=== PATIENT | female | born 1940 | race Caucasian/White ===

== ENCOUNTER 2018-09-25 17:03 | Inpatient (IN) | payer MEDICARE, BC, OTHER ==
--- NOTE | 2018-09-25 18:03 | CON ---
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 She lives in [place] and had a stress test done there about 1 month ago and it was abnormal and they recommended cardiac catheterization. On September 08, she came to see Dr. Hernandez, because he had seen her previously for cardiac evaluations, which were unremarkable. He performed a PET scan on her, which demonstrated elevated TID suggestive of global ischemia with moderate reversible defects in the LAD distribution. She returned today for cardiac catheterization demonstrating severe left main disease, minimal right coronary disease. Left ventricular systolic function is normal, per Dr. Hernandez. Her risk factors include hypertension, dyslipidemia with statin intolerance, and diabetes mellitus. Cholesterol level has been about 183 and an LDL of about 107. Her most recent A1c was 8.3. CURRENT MEDICATIONS: Include, 1. Glucophage 850 b.i.d. 2. Glucotrol 5 XL daily. 3. Tresiba. 4. Afrezza. 5. Prinivil. 6. Aspirin 81 a day. Additional medications include, 1. Coreg 12.5 b.i.d. 2. Lisinopril 40 a day. 3. Synthroid 100 mcg a day. 4. As mentioned, she is on Tresiba 22 units every evening. 5. Afrezza 8 units/12 units three times daily. PAST SURGICAL HISTORY: Includes tonsillectomy and tubal ligation. SOCIAL HISTORY: As mentioned, she is a retired nurse. She is , lives with her in [place]. She recently had suffered the of one of her sons about a week ago and the other son suffered an accidental leg amputation in March of this year. The patient does drink alcohol. ALLERGIES: SHE REPORTS MYALGIA WITH PRAVASTATIN AND SIMVASTATIN, PARTICULARLY IN HER HANDS AND SHE REPORTS EDEMA WITH LOSARTAN AND REACTION OF SOME SORT TO ERYTHROMYCIN BASE. PHYSICAL EXAMINATION: GENERAL: Alert, cooperative lady, in no distress with a recorded height of 5 feet 3 inches. Weight not recorded. NECK: No carotid bruits. LUNGS: Clear to auscultation. CARDIAC: Regular rate and rhythm. No murmurs. ABDOMEN: Soft and nontender. EXTREMITIES: She has no varicosities, but no palpable veins in the lower leg. She has palpable dorsalis pedis pulse in both feet. She has a good Anthony's test in her left arm. At this time, she could have grafted the LAD and distal circumflex. She has 2 first diagonals which appeared to be too small to graft. PLAN: Plan is for coronary artery bypass grafting on Friday. Job ID: [id number]
[2018-09-25] MEDS ORDERED: Acetaminophen 325 MG TAB PO PRN (20:55)
[2018-09-25] MEDS ORDERED: Dextrose 50% Abboject 50 ML SYRINGE SLOW IVP PRN (20:58)
[2018-09-25] MEDS ORDERED: HumaLOG 300 UNITS/3 ML VIAL SC PRN (20:58)
[2018-09-25] MEDS ORDERED: Dextrose 5% in Water 1,000 ML IV PRN (20:58)
[2018-09-25] MEDS ORDERED: Nitroglycerin 0.4 MG TAB (25 Tab Bottle) SL PRN (20:59)
[2018-09-25] MEDS ORDERED: Insulin Glargine 22 UNITS in Pre-Filled Syringe 1 EACH SC SCH (21:00)
--- NOTE | 2018-09-25 21:56 | HP ---
The patient is a direct admit from the cardiac catheterization lab at outside hospital. CHIEF COMPLAINT: Chest pain with exertion. HISTORY OF PRESENT ILLNESS: This is a 78-year-old female with history of hypertension; dyslipidemia; and diabetes mellitus, on insulin, who presents to the hospital from the catheterization lab at the direction of Dr. Hernandez and Dr. Mueller for severe coronary artery disease needing CABG. The patient reports that starting in December of 2017, when she would walk about a quarter mile at a fast pace that she would have burning across her chest, occasional radiation to her right arm, and feeling short of breath. She had a few episodes that were not consistent, however, this has persisted since then. She does report that she can exert herself such as lifting things or working out in her garden without symptoms. She denies any chest pain currently, denies any nausea or vomiting, denies any symptoms right now. The patient lives in [place], had an abnormal stress test there and required further workup. As she is used to live in this area, she followed up with Dr. Hernandez and had an echocardiogram, a PET scan, which demonstrated ischemia, today underwent catheterization, which shows severe left main artery disease. Based on that, Dr. Mueller was contacted from the catheterization center, and the patient is being directly admitted. ALLERGIES: 1. ERYTHROMYCIN. 2. LOSARTAN. 3. STATINS, WHICH CAUSE MYALGIAS. FAMILY HISTORY: Significant for coronary artery disease, elevated cholesterol, and hypertension. MEDICATIONS: Reconciled with the bottles; 1. Afrezza 8 to 12 units inhaled 3 times a day with meals. 2. Lisinopril 40 mg daily. 3. Aspirin 81 mg daily. 4. Prilosec 40 mg daily. 5. Carvedilol 12.5 mg b.i.d. 6. Synthroid 100 mcg once a day. 7. Chlorthalidone 25 mg once a day. 8. Tresiba 22 units subcutaneous at night. 9. Calcium and vitamin D b.i.d. 10. Biotin daily. 11. Magnesium daily. 12. Coenzyme Q10 of 100 mg daily. 13. Homocysteine daily. 14. Vitamin C daily. 15. Policosanol 23 mg daily, it is a vitamin supplement. 16. Red yeast rice 3 times a week. 17. Vitamin D once a week. PAST MEDICAL HISTORY: 1. Diabetes Mellitus, insulin-requiring. 2. Dyslipidemia, intolerant to statins. 3. Hypertension. 4. Hypothyroidism with last TSH 2.87 on September 17. 5. Osteopenia. PAST SURGICAL HISTORY: 1. Tonsillectomy. 2. Tubal ligation. SOCIAL HISTORY: The patient is . Her is her surrogate decision maker and she is a full code. A remote history of tobacco. No alcohol use or drug use. Of note, the patient's youngest son 2 days ago. REVIEW OF SYSTEMS: Positive for some mild swelling in her legs, negative for any current chest pain, shortness of breath, dizziness, abdominal pain, nausea, or vomiting. All remaining review of systems are reviewed and negative. PHYSICAL EXAMINATION: VITAL SIGNS: Blood pressure 123/104, pulse 50, temperature 97.8, respirations 16, and sats 98% on room air. GENERAL: Awake, alert, and responsive, in no apparent distress. HEENT: Oral mucosa pink and moist. Pupils are equal and round. NECK: Supple and nontender. LYMPHATICS: No palpable cervical or supraclavicular lymphadenopathy. VASCULAR: No audible carotid bruits. LUNGS: Clear to auscultation bilateral. HEART: Normal S1 and S2. Regular rate and rhythm. No significant murmurs. ABDOMEN: Soft with present bowel sounds. Nontender and nondistended. EXTREMITIES: No significant edema, clubbing, or cyanosis. SKIN: No visible rashes. NEURO: No focal deficits. PSYCH: Euthymic, appears sad when discussing the current situation, linear, logical, goal directed thought process. LABORATORY DATA: Reviewed, that were performed at [facility]. CBC; 8.1, 11.6, 35, and 218. Metabolic panel; 138, 4.7, 104, 27, 31.0, and 156. LFTs, total protein 7, albumin 3.7, T bilirubin 0.7, D bilirubin 0.1, AST 24, ALT 25, and alkaline phosphatase 63. Lipids, triglycerides 34, total cholesterol 218, HDL 81, and LDL 130. TSH from September 17.87. Last hemoglobin A1c was 8.3. EKG is personally reviewed. EKG shows a sinus rhythm with a rate of 52, normal axis, normal intervals. No ST changes. However, abnormal R-wave progression. Catheterization today shows 95% occlusion of the left main or the LAD. IMPRESSION: 1. Stable angina with now diagnosed severe coronary artery disease, warranting coronary artery bypass grafting. 2. Diabetes mellitus, insulin dependent. 3. Hypertension, unknown control. 4. Dyslipidemia, intolerant to statins. 5. Hypothyroidism, controlled. 6. Mild anemia based on labs today. 7. Questionable chronic kidney disease based on a GFR calculated today of 58. PLAN: 1. Admission to the [facility] for close monitoring as a telemetry bed is not available. 2. Consultation with Dr. Mueller, who has already seen the patient and Dr. Owens of Cardiology. 3. We will be continuing her beta emerson, aspirin, wiliam-inhibitor for blood pressure control. 4. We will continue long-acting insulin and use short-acting injectable insulin with meals with the goal of good control preoperatively. 5. Monitoring her renal function. Continuing her WILIAM inhibitor. 6. Continue levothyroxine as last TSH at goal. 7. Monitoring on telemetry. 8. Nitroglycerin p.r.n. for any chest pain. 9. Continuing her home PPI. 10. DVT prophylaxis. The patient is ambulatory. We will use pneumatic compression devices while in bed. 11. GI prophylaxis not indicated. 12. Code status is full and surrogate decision maker is the patient's . 13. The patient declines any spiritual support given the loss of her son, will let us know if there is other ways that we can help and support her during this time. 14. Reviewed the plan of care with the patient, who demonstrates understanding. No questions or further needs at the end of evaluation. 15. The patient is at high risk given age comorbidities and current presentation. Job ID: [id number] [facility]
[2018-09-25] MEDS ORDERED: Insulin Glargine 10 UNITS in Pre-Filled Syringe 1 EACH SC SCH (22:15)
[2018-09-25] MEDS: Carvedilol 6.25 MG TAB PO SCH (22:29)
[2018-09-25] MEDS ORDERED: TRESIBA SC SCH (22:30)
[2018-09-26 04:51] LABS: Anion Gap 9 mmol/L (10-20); BUN (Urea Nitrogen) 25 mg/dL (9.8-20.1); Calc. Creatinine Clearance 50 mL/min (70-130); Calcium 9.7 mg/dL (7.8-10.44); Carbon Dioxide 26 mmol/L (23-31); Chloride 103 mmol/L (98-107); Estimated GFR-MDRD 53; Glucose 230 mg/dL (83-110); Potassium 4.3 mmol/L (3.5-5.1); Sodium 134 mmol/L (136-145)
[2018-09-26] MEDS: Levothyroxine Sodium 100 MCG TAB PO SCH (05:30)
[2018-09-26] MEDS: Carvedilol 6.25 MG TAB PO SCH ×3 (09:37→21:07)
[2018-09-26] MEDS: Chlorthalidone 25 MG TAB PO SCH (09:37)
[2018-09-26] MEDS: Aspirin 81 mg Enteric Coated Tablet PO SCH (09:37)
[2018-09-26] MEDS: Lisinopril 20 MG TAB PO SCH (09:38)
--- NOTE | 2018-09-26 10:04 | PDOC.PN ---
- Subjective Encounter Start Date: 09/26/18 (f/u severe CAD) Encounter Start Time: 10:02 Subjective: Pt without complaints this morning - denies any chest pain. - Objective Resuscitation Status - Order Detail: 09/25/18 20:55 Resuscitation Status Routine Resuscitation Status: FULL: Full Resuscitation Vital Signs & Weight: Vital Signs (12 hours) Temp BP 09/26/18 09:38 115/58 L 09/26/18 09:37 115/58 L 09/26/18 07:14 96.5 F L 09/26/18 03:38 97.3 F L 09/26/18 00:05 98.0 F 09/25/18 22:29 165/93 H Weight Weight 149 lb 11.102 oz Most Recent Monitor Data Heart Rate from ECG 58 NIBP 115/58 NIBP BP-Mean 77 Respiration from ECG 12 SpO2 95 I&O: 09/25/18 09/26/18 09/27/18 06:59 06:59 06:59 Intake Total 240 Output Total 325 Balance -85 Result Diagrams: 09/26/18 04:14 Additional Labs: Accuchecks 09/25/18 21:07 POC Glucose 77 EKG Reviewed by me: Yes (tele - sinus 50's) Phys Exam - Physical Examination Constitutional: NAD Respiratory: no wheezing, no rales, no rhonchi, clear to auscultation bilateral Cardiovascular: RRR 2/6 YELITZA most audible at LUSB Gastrointestinal: soft, non-tender, no distention, positive bowel sounds Musculoskeletal: no edema Neurological: non-focal, moves all 4 limbs Psychiatric: normal affect Dx/Plan (1) Coronary artery disease Code(s): I25.10 - ATHSCL HEART DISEASE OF [place] CORONARY ARTERY W/O ANG PCTRS Status: Acute (2) Diabetes mellitus Code(s): E11.9 - TYPE 2 DIABETES MELLITUS WITHOUT COMPLICATIONS Status: Acute Qualifiers: Diabetes mellitus type: type 2 Diabetes mellitus intermediate designer insulin use: with intermediate designer use (3) CKD (chronic kidney disease) Code(s): N18.9 - CHRONIC KIDNEY DISEASE, UNSPECIFIED Status: Acute Qualifiers: Chronic kidney disease stage: stage 2 (mild) Qualified Code(s): N18.2 - Chronic kidney disease, stage 2 (mild) (4) Dyslipidemia Code(s): E78.5 - HYPERLIPIDEMIA, UNSPECIFIED Status: Chronic (5) Hypothyroid Code(s): E03.9 - HYPOTHYROIDISM, UNSPECIFIED Status: Chronic (6) Hypertension Code(s): I10 - ESSENTIAL (PRIMARY) HYPERTENSION Status: Chronic Qualifiers: Hypertension type: essential hypertension Qualified Code(s): I10 - Essential (primary) hypertension - Plan * pt with severe left main disease awaiting CABG on Friday * Appreciate [facility] consult * Cardiology consult placed * bp's well controlled * AM sugar elevated - secondary to low blood sugar last night and reduced amount of long-acting insulin * Increase Treesiba to 22 units at HS - home dose * ISS with meals * Pre-op planning - per [facility] * continue usual home meds * creatinine normal, estimated GFR 58 - will follow post-operatively * dvt prophy - ambulatory * gi prophy - not indicated * code status full * * reviewed plan of care with patient, no questions or further needs at end of eval
[2018-09-26] MEDS: HumaLOG 300 UNITS/3 ML VIAL SC PRN ×2 (10:57→17:21)
--- NOTE | 2018-09-26 13:13 | CON ---
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 Dr. Mueller has scheduled to undergo CABG on Friday morning. This morning, she denied any chest pain, chills, or sweats. She is a former smoker, quit 50 years ago, but no prior history of TB, pneumonia, or bronchial asthma. PAST MEDICAL HISTORY: Pertinent for otherwise diabetes, hypertension, hyperlipidemia, and hypothyroidism. PREVIOUS SURGICAL HISTORY: Tonsils and tubal ligation. MEDICATIONS: Cardiac medications from home included; 1. . 2. Lisinopril 40. 3. Synthroid 100. 4. Insulin. 5. Coreg 12.5. 6. Aspirin. ALLERGIES: ERYTHROMYCIN AND LOSARTAN. SOCIAL HISTORY: As noted, no alcohol or tobacco abuse at this stage. REVIEW OF SYSTEMS: Ten-point negative. PHYSICAL EXAMINATION: VITAL SIGNS: Blood pressure 115/58, pulse 50, and respiratory rate 18. CHEST: Decreased breath sounds. No wheezing. CARDIAC: Normal S1 and S2. No gallops. ABDOMEN: No masses. IMPRESSION: Coronary artery disease, hypertension, diabetes, and obesity. PLAN: Pulmonary will follow while in the ICU. Continue cardiac care and supportive care. Job ID: [id number]
[2018-09-26] MEDS ORDERED: Communication Order-Pharmacy FS ONE (13:30)
[2018-09-26] MEDS ORDERED: [UNRECOGNIZED DRUG - OTHER] FS SCH ×2 (15:00)
--- NOTE | 2018-09-26 17:18 | CON ---
DATE OF CONSULTATION: 09/26/2018 REASON FOR CONSULTATION: Coronary artery disease. HISTORY OF PRESENT ILLNESS: Ms. Pompa is a very pleasant 78-year-old white female, who comes to the hospital for a planned bypass surgery. She is currently living in [place], but was following with Dr. Hernandez for several years in the past. She started having symptoms persistent with angina sometime in the fall of last year. She saw a clay mine cutting machine operator over there, did a treadmill stress and she was told that her EKG was very abnormal and she might need bypass surgery and needed heart catheterization. She eventually decided that she want to come back to [place] and Dr. Hernandez to do this, and eventually had a heart catheterization yesterday and was found to have severe multivessel disease. She is scheduled to have CABG on Friday with Dr. Mueller. She is admitted here, planning for CABG on Friday. Currently, she is chest-pain free. She only gets pain and shortness of breath when she walks too much. PAST MEDICAL HISTORY: 1. Coronary artery disease as above. 2. Hypertension. 3. Hyperlipidemia. 4. Type 2 diabetes, insulin dependent. 5. GERD. 6. Hypothyroidism. 7. Osteopenia. PAST SURGICAL HISTORY: 1. Tonsillectomy. 2. Tubal ligation. 3. Left heart catheterization yesterday. OUTPATIENT MEDICATIONS: Include: 1. Afrezza. 2. Lisinopril 40 mg a day. 3. Aspirin 81 a day. 4. Prilosec. 5. Carvedilol 12.5 mg b.i.d. 6. Synthroid 100 mcg a day. 7. Chlorthalidone 25 mg a day. 8. Tresiba. 9. Calcium and vitamin D. 10. Biotin. 11. Magnesium. 12. Coenzyme Q10. 13. Homocysteine. 14. Vitamin C. 15. Policosanol vitamin supplement. 16. Red yeast rice. 17. Vitamin D. ALLERGIES: 1. ERYTHROMYCIN. 2. LOSARTAN. 3. STATINS CAUSE MYALGIAS. FAMILY HISTORY: Coronary artery disease in mother, hyperlipidemia, and hypertension. SOCIAL HISTORY: No alcohol, tobacco, or drugs. Remote history of tobacco use. REVIEW OF SYSTEMS: A 12-point review of systems was done and was all negative unless stated in the history of present illness. PHYSICAL EXAMINATION: VITAL SIGNS: Temperature 98.5, pulse is 62, respiratory rate 17, sat 97% on room air, and blood pressure 136/64. GENERAL: Awake, alert, and oriented x3. No distress. HEENT: Normocephalic and atraumatic. NECK: Supple. LUNGS: Clear. CARDIOVASCULAR: S1 and S2. No S3 or S4. No murmurs. ABDOMEN: Soft. Positive bowel sounds. EXTREMITIES: No edema. SKIN: Warm and dry. LABORATORY DATA: Laboratory work was reviewed. ASSESSMENT: 1. Multivessel coronary artery disease. 2. Hypertension. 3. Hyperlipidemia. 4. Intolerance to statins. 5. Type 2 diabetes. PLAN: 1. CABG by Dr. Mueller, scheduled for Friday. 2. We will need aspirin, beta emerson, and WILIAM inhibitor before discharge. We will try to restart at lower doses once blood pressure allows. 3. She will be a candidate for Repatha or Praluent in the future as she is intolerant to statins. LDL goal less than 70. Thank you for letting us to participate in care of your patient. Job ID: [id number]
[2018-09-26] MEDS ORDERED: TRESIBA SC SCH (21:00)
[2018-09-26] MEDS ORDERED: Insulin Glargine 22 UNITS in Pre-Filled Syringe 1 EACH SC SCH (21:00)
[2018-09-27] MEDS: Levothyroxine Sodium 100 MCG TAB PO SCH (06:18)
[2018-09-27] MEDS: Carvedilol 6.25 MG TAB PO SCH (08:58)
[2018-09-27] MEDS: Lisinopril 20 MG TAB PO SCH (08:58)
[2018-09-27] MEDS: Aspirin 81 mg Enteric Coated Tablet PO SCH (08:59)
[2018-09-27] MEDS: Chlorthalidone 25 MG TAB PO SCH (08:59)
--- NOTE | 2018-09-27 12:03 | PRG ---
DATE OF SERVICE: 09/27/2018 SUBJECTIVE: This morning, no chest pain. No shortness of breath. OBJECTIVE: VITAL SIGNS: Blood pressure temperature 97, pulse 57, 90% saturation on room air. CHEST: Decreased breath sounds. No wheezing. CARDIAC: Normal S1 and S2. No gallops. ABDOMEN: No masses. IMPRESSION: Coronary artery disease, diabetes, renal failure. PLAN: She is scheduled for surgery, bypass tomorrow. We will follow while in the ICU. Job ID: [id number]
--- NOTE | 2018-09-27 15:18 | PDOC.CTH ---
Cardiology Progress Note - Subjective No new issues. No chest pain. - Objective Vital Signs Temp Pulse Resp BP BP BP Pulse Ox 09/27/18 11:55 97.9 F 64 16 125/60 96 09/27/18 08:58 126/59 L 09/27/18 08:00 97 F L 57 L 18 126/59 L 93 L 09/27/18 03:40 98.0 F 65 16 129/60 95 Weight 151 lb 09/26/18 09/27/18 09/28/18 06:59 06:59 06:59 Intake Total 240 1120 440 Output Total 325 1000 Balance -85 120 440 - Physical Examination General/Neuro: alert & oriented x3, NAD Neck: no JVD present Lungs: CTA, unlabored respirations Heart: RRR Abdomen: NT/ND Extremities: other: (no edema) - Telemetry Telemetry Rhythm: NSR - Labs Result Diagrams: 09/26/18 04:14 - Assessment/Plan 1. Multivessel CAD. PLAN: - CABG tomorrow with Dr. Mueller.
--- NOTE | 2018-09-27 15:53 | PDOC.PN ---
- Subjective Encounter Start Date: 09/27/18 (f/u DM) Encounter Start Time: 15:47 Subjective: Pt without complaints today. Denies any chest pain or difficulty breathing - Objective Resuscitation Status - Order Detail: 09/25/18 20:55 Resuscitation Status Routine Resuscitation Status: FULL: Full Resuscitation Vital Signs & Weight: Vital Signs (12 hours) Temp Pulse Resp BP BP BP Pulse Ox 09/27/18 11:55 97.9 F 64 16 125/60 96 09/27/18 08:58 126/59 L 09/27/18 08:00 97 F L 57 L 18 126/59 L 93 L Weight Weight 151 lb Most Recent Monitor Data Heart Rate from ECG 60 NIBP 118/52 NIBP BP-Mean 74 Respiration from ECG 15 SpO2 96 I&O: 09/26/18 09/27/18 09/28/18 06:59 06:59 06:59 Intake Total 240 1120 440 Output Total 325 1000 Balance -85 120 440 Result Diagrams: 09/26/18 04:14 Additional Labs: Accuchecks 09/27/18 09/27/18 09/26/18 10:42 05:25 20:39 POC Glucose 159 H 146 H 176 H 09/26/18 09/26/18 16:26 06:00 POC Glucose 154 H 188 H EKG Reviewed by me: Yes (tele - sinus 60's) Phys Exam - Physical Examination Constitutional: NAD Respiratory: no wheezing, no rales, no rhonchi, clear to auscultation bilateral Cardiovascular: RRR, no significant murmur Gastrointestinal: soft, non-tender, no distention, positive bowel sounds Musculoskeletal: no edema Neurological: non-focal, moves all 4 limbs Psychiatric: normal affect Dx/Plan (1) Coronary artery disease Code(s): I25.10 - ATHSCL HEART DISEASE OF [place] CORONARY ARTERY W/O ANG PCTRS Status: Acute (2) Diabetes mellitus Code(s): E11.9 - TYPE 2 DIABETES MELLITUS WITHOUT COMPLICATIONS Status: Acute Qualifiers: Diabetes mellitus type: type 2 Diabetes mellitus halfway insulin use: with halfway use (3) CKD (chronic kidney disease) Code(s): N18.9 - CHRONIC KIDNEY DISEASE, UNSPECIFIED Status: Acute Qualifiers: Chronic kidney disease stage: stage 2 (mild) Qualified Code(s): N18.2 - Chronic kidney disease, stage 2 (mild) (4) Dyslipidemia Code(s): E78.5 - HYPERLIPIDEMIA, UNSPECIFIED Status: Chronic (5) Hypothyroid Code(s): E03.9 - HYPOTHYROIDISM, UNSPECIFIED Status: Chronic (6) Hypertension Code(s): I10 - ESSENTIAL (PRIMARY) HYPERTENSION Status: Chronic Qualifiers: Hypertension type: essential hypertension Qualified Code(s): I10 - Essential (primary) hypertension - Plan * * pt with severe left main disease awaiting CABG tomorrow * Appreciate [facility] consult and Cardiology consult * * bp's well controlled * DM and Treseeba - given pt will be NPO after midnight, will order 10 units of insulin tonight. She was NPO on Friday for the cath at 12:30 and she reports her blood sugar was 77 prior to the procedure, with 11 units the night before. Blood sugars will need to be monitored closely tomorrow. * Pre-op planning - per [facility] * continue usual home meds * creatinine normal, estimated GFR 58 on admission - will follow post- operatively * dvt prophy - ambulatory * gi prophy - not indicated * code status full * * reviewed plan of care with patient, no questions or further needs at end of eval.
[2018-09-27] MEDS ORDERED: TRESIBA SC SCH (15:54)
[2018-09-28] MEDS: Carvedilol 6.25 MG TAB PO SCH ×2 (00:03→05:55)
[2018-09-28] MEDS ORDERED: CEFAZOLIN 2 GM in Premix Bag 1 BAG IVPB SCH (02:15)
[2018-09-28] MEDS: Lisinopril 20 MG TAB PO SCH (05:55)
[2018-09-28] MEDS: Levothyroxine Sodium 100 MCG TAB PO SCH (05:55)
[2018-09-28 06:21] LABS: Anion Gap 11 mmol/L (10-20); BUN (Urea Nitrogen) 23 mg/dL (9.8-20.1); Calc. Creatinine Clearance 44 mL/min (70-130); Calcium 9.8 mg/dL (7.8-10.44); Carbon Dioxide 24 mmol/L (23-31); Chloride 102 mmol/L (98-107); Estimated GFR-MDRD 48; Glucose 142 mg/dL (83-110); Potassium 4.1 mmol/L (3.5-5.1); Sodium 133 mmol/L (136-145)
[2018-09-28] MEDS ORDERED: Albumin 5% 500 ML ONE (06:34)
[2018-09-28] MEDS ORDERED: Heparin 10,000 UNITS/1 ML VIAL 30,000 UNITS in Sodium Chloride 0.9% 1,000 ML IVPB SCH (08:30)
[2018-09-28] MEDS ORDERED: Fentanyl 100 MCG/2 ML VIAL ONE (09:37)
[2018-09-28] MEDS ORDERED: Midazolam HCl 5 mg/5 ml Vial ONE (09:37)
[2018-09-28] MEDS ORDERED: Vecuronium 10 MG VIAL ONE ×2 (09:37→16:28)
[2018-09-28] MEDS ORDERED: Dexmedetomidine 200 MCG/2 ML VIAL ONE (09:37)
[2018-09-28] MEDS ORDERED: SUGAMMADEX SODIUM 500 MG/5 ML VIAL ONE (13:06)
[2018-09-28] MEDS: Lactated Ringer's 1,000 ML IV SCH (13:45)
[2018-09-28] MEDS ORDERED: Insulin Regular 300 UNITS/3 ML VIAL ONE (13:49)
[2018-09-28] MEDS ORDERED: Mag-Al 1200 mg/1200 mg/30 ML UDCUP PO PRN (13:56)
[2018-09-28] MEDS ORDERED: Post-Op Insulin Drip Protocol IVPB ONE (13:56)
[2018-09-28] MEDS ORDERED: HYDROcodone/Acetaminophen 5/325 mg Tablet PO PRN ×2 (13:56)
[2018-09-28] MEDS ORDERED: Potassium Chloride 20 MEQ/100 ML PREMIX BAG IVPB PRN (13:56)
[2018-09-28] MEDS ORDERED: Bisacodyl 5 MG TAB PO PRN (13:56)
[2018-09-28] MEDS ORDERED: Nitroglycerin 50 MG/250 ML BOT 250 ML IVPB PRN (13:56)
[2018-09-28] MEDS ORDERED: hydrALAZINE 20 MG/ML VIAL SLOW IVP PRN (13:56)
[2018-09-28] MEDS ORDERED: Promethazine HCl 25 MG/ML VIAL IM PRN (13:56)
[2018-09-28] MEDS ORDERED: niCARdipine 25 MG in Sodium Chloride 0.9% 250 ML 240 ML IVPB PRN (13:56)
[2018-09-28] MEDS ORDERED: Morphine 2 MG/ML SYRINGE SLOW IVP PRN (13:56)
[2018-09-28] MEDS ORDERED: Bisacodyl 10 MG SUPP PR PRN (13:56)
[2018-09-28] MEDS ORDERED: Ondansetron PF 4 MG/2 ML Vial IVP PRN (13:56)
[2018-09-28] MEDS ORDERED: DOPamine 400 MG/D5W 250 ML 250 ML IVPB PRN (13:56)
[2018-09-28] MEDS ORDERED: Guaifenesin DM 100-10/5 ML UDCUP PO PRN (13:56)
[2018-09-28] MEDS ORDERED: Fentanyl 100 MCG/2 ML VIAL SLOW IVP PRN (13:56)
[2018-09-28] MEDS ORDERED: Hetastarch 6% 500 ML 500 ML IVPB PRN (13:56)
[2018-09-28 14:05] LABS: Hemoglobin 9.7 g/dL (12.0-16.0); Mean Corpuscular HGB CONC 33.9 g/dL (32.0-36.0); Mean Corpuscular Hemoglobin 30.6 pg (27.0-31.0); Mean Corpuscular Volume 90.2 fL (78.0-98.0); Mean Platelet Volume 8.1 fL (7.4-10.4); Platelet Count 125 thou/uL (130-400); RBC Distribution Width 12.5 % (11.5-14.5); Red Blood Cell (RBC) Count 3.17 mill/uL (4.20-5.40); White Blood Cell (WBC) Count 22.7 thou/uL (4.8-10.8)
[2018-09-28 14:08] LABS: INR-International Normal Ratio 1.4; PTT 27.9 SEC (22.9-36.1); Prothrombin Time 17.3 SEC (12.0-14.7)
[2018-09-28 14:17] LABS: Anion Gap 10 mmol/L (10-20); BUN (Urea Nitrogen) 19 mg/dL (9.8-20.1); Calc. Creatinine Clearance 60 mL/min (70-130); Calcium 8.5 mg/dL (7.8-10.44); Carbon Dioxide 22 mmol/L (23-31); Chloride 108 mmol/L (98-107); Estimated GFR-MDRD 68; Glucose 143 mg/dL (83-110); Potassium 3.8 mmol/L (3.5-5.1); Sodium 136 mmol/L (136-145)
[2018-09-28 14:26] LABS: Band 16 % (5-11); Eosinophils 2 % (0-10); Lymphocytes 8 % (21-51); MDiff Complete? YES; Metamyelocyte 3 % (0-0); Monocytes 5 % (0-10); Neutrophil 66 % (42-75); Platelet Morphology Comment Appears Decreased; Polychromasia SLIGHT = 2-3 cells (100X) (0-2/hpf)
[2018-09-28 14:29] LABS: Potassium 3.9 mmol/L (3.5-5.1)
[2018-09-28] MEDS ORDERED: Magnesium 2 GM/50 ML 2 GM in Premix Bag 1 BAG IVPB SCH (14:30)
[2018-09-28] MEDS ORDERED: Dextrose 5% in Water 1,000 ML IV PRN (14:32)
[2018-09-28] MEDS ORDERED: Dextrose 50% Abboject 50 ML SYRINGE SLOW IVP PRN (14:32)
[2018-09-28] MEDS ORDERED: HUMULIN R 100 UNITS in Sodium Chloride 0.9% 100 ML IVPB SCH (14:32)
--- NOTE | 2018-09-28 14:54 | RAD ---
ONE VIEW CHEST: HISTORY: Status post open heart surgery. COMPARISON: None. FINDINGS: Portable supine chest radiograph demonstrates a right-sided subclavian gastric catheter oriented in a cephalad direction. Distal tip is presumed to be in the jugular vein. Distal tip is not included o n this current exam. Mediastinal drainage catheter is noted. There are sternotomy wires. Heart size is within normal bucio its. No significant pericardial fluid. Patchy interstitial opacities in lung bases. No pneumothora x. IMPRESSION: 1. Right-sided vascular catheter as described above. Distal tip is not visualized and is presumed t o be in the internal jugular vein. Repositioning is recommended. 2. Findings compatible with recent open heart surgery. CODE T POS: OFF
[2018-09-28] MEDS: CEFAZOLIN 2 GM in Premix Bag 1 BAG IVPB SCH (15:43)
[2018-09-28] MEDS: Fentanyl 100 MCG/2 ML VIAL SLOW IVP PRN ×2 (16:08→22:46)
--- NOTE | 2018-09-28 16:18 | OP ---
DATE OF PROCEDURE: 09/28/2018 PREOPERATIVE DIAGNOSIS: Coronary artery disease. PROCEDURE PERFORMED: Coronary artery bypass graft x2; left internal mammary artery to a 1.25-mm mid left anterior descending, saphenous vein to a 1.25-mm distal obtuse marginal prior to its bifurcation. DIRECTOR ENTERPRISE SYSTEMS: Tom Hathaway MD. TRANSFUSION: Two units of packed red cells. DESCRIPTION OF PROCEDURE: After adequate anesthesia had been obtained, the patient was prepped and draped. I harvested a segment of saphenous vein from the distal left thigh, following which the wound was closed as the vein was prepped. I then turned my attention to a median sternotomy, which was performed harvesting the left internal mammary artery, treating it with papaverine, and passing it posterior to the thymus gland. Aorta and right atrium were cannulated, and cardiopulmonary bypass was begun. Vessels were inspected for grafting. The aorta was crossclamped, and a liter of [place] cardioplegic solution was given. The distal obtuse marginal was isolated proximal to the bifurcation, and it was a small vessel to which saphenous vein was anastomosed in an end-to-side fashion. Following completion of this, attention was turned to the LAD. It was extramyocardial distally at a loop; however, this vessel was very small, and it was found more proximally, where the HEARD to LAD anastomosis was completed. Following this, the pedicle was secured to the myocardium. The crossclamp was removed. The partial occluding clamp was placed in a single proximal anastomosis performed on the aortic root and marked with a ring. The patient then was asystolic, and temporary atrial wires were placed, and she was then paced. She was weaned from cardiopulmonary bypass. Cannulas were removed, and both right atrial and aortic cannulation sites were secured with an additional Prolene suture. Mediastinal drain was placed, following which the sternum was reapproximated with #7 interrupted wire. Vancomycin paste was used on the sternal edges. Subcutaneous tissue and skin were closed in layers, and the patient is to be taken to the ICU in guarded condition. Job ID: [id number]
[2018-09-28] MEDS ORDERED: ePHEDrine 50 MG/ML VIAL ONE (16:28)
[2018-09-28] MEDS ORDERED: Papaverine 60 MG/2 ML VIAL ONE (16:28)
[2018-09-28] MEDS ORDERED: Sodium Bicarb 50 MEQ/50 ML VIAL ONE (16:28)
[2018-09-28] MEDS ORDERED: Heparin 5,000 UNITS/ML VIAL ONE (16:28)
[2018-09-28] MEDS ORDERED: Heparin 30,000 units/30 ml VIAL ONE (16:28)
[2018-09-28] MEDS ORDERED: Cardioplegic Soln 1,000 ML BAG ONE (16:28)
[2018-09-28] MEDS ORDERED: Glycopyrrolate 0.2 MG/ML 5 ML SYRINGE ONE (16:28)
[2018-09-28] MEDS ORDERED: Nitroglycerin 50 MG/250 ML BOT ONE (16:28)
[2018-09-28] MEDS ORDERED: Mannitol 12.5 GM/50 ML ONE (16:28)
[2018-09-28] MEDS ORDERED: Potassium Chloride 60 MEQ/30 ML VIAL ONE (16:28)
[2018-09-28] MEDS ORDERED: Calcium Chloride 1 GM/10 ML Abboject SYRINGE ONE (16:28)
[2018-09-28] MEDS ORDERED: Protamine Sulfate 250 MG/25 ML VIAL ONE (16:28)
[2018-09-28] MEDS ORDERED: Aminocaproic Acid 5 GM/20 ML VIAL ONE (16:28)
[2018-09-28] MEDS ORDERED: Magnesium 5 GM/10 ML VIAL ONE (16:28)
[2018-09-28] MEDS ORDERED: Thrombin 5000 UNITS/5 ML VIAL ONE (16:28)
[2018-09-28] MEDS ORDERED: Lidocaine 2% PF 100 mg/5 ml Syringe ONE (16:28)
[2018-09-28] MEDS ORDERED: PHENYLEPHRINE-NS 100 MCG/ML 10 ML SYRINGE ONE (16:28)
[2018-09-28] MEDS: Ketorolac Tromethamine 30 MG/ML VIAL IVP SCH (18:08)
--- NOTE | 2018-09-28 18:28 | PDOC.PN ---
- Subjective Encounter Start Date: 09/28/18 (f/u DM) Encounter Start Time: 18:26 Subjective: Pt is s/p CABG today, extubated and in the ICU. She is c/o pain - Objective Resuscitation Status - Order Detail: 09/25/18 20:55 Resuscitation Status Routine Resuscitation Status: FULL: Full Resuscitation Vital Signs & Weight: Vital Signs (12 hours) Temp Pulse Ox 09/28/18 16:00 98 F 09/28/18 15:10 100 09/28/18 14:00 97.8 F 100 Weight Weight 146 lb 5 oz Most Recent Monitor Data Heart Rate from ECG 58 NIBP 101/59 NIBP BP-Mean 73 Respiration from ECG 14 SpO2 96 I&O: 09/27/18 09/28/18 09/29/18 06:59 06:59 06:59 Intake Total 1120 1140 100 Output Total 1000 1925 305 Balance 565 -297 -841 Result Diagrams: 09/28/18 13:42 09/28/18 13:42 Additional Labs: Accuchecks 09/28/18 09/28/18 09/28/18 13:49 05:39 00:03 POC Glucose 147 H 142 H 148 H 09/27/18 20:37 POC Glucose 338 H Phys Exam - Physical Examination Constitutional: NAD appears uncomfortable secondary to pain Respiratory: no wheezing Cardiovascular: RRR, no significant murmur Gastrointestinal: soft, positive bowel sounds Musculoskeletal: no edema Deviation from normal: tired appearing Dx/Plan (1) Coronary artery disease Code(s): I25.10 - ATHSCL HEART DISEASE OF [place] CORONARY ARTERY W/O ANG PCTRS Status: Acute (2) Diabetes mellitus Code(s): E11.9 - TYPE 2 DIABETES MELLITUS WITHOUT COMPLICATIONS Status: Acute Qualifiers: Diabetes mellitus type: type 2 Diabetes mellitus termite treater insulin use: with residential use (3) CKD (chronic kidney disease) Code(s): N18.9 - CHRONIC KIDNEY DISEASE, UNSPECIFIED Status: Acute Qualifiers: Chronic kidney disease stage: stage 2 (mild) Qualified Code(s): N18.2 - Chronic kidney disease, stage 2 (mild) (4) Dyslipidemia Code(s): E78.5 - HYPERLIPIDEMIA, UNSPECIFIED Status: Chronic (5) Hypothyroid Code(s): E03.9 - HYPOTHYROIDISM, UNSPECIFIED Status: Chronic (6) Hypertension Code(s): I10 - ESSENTIAL (PRIMARY) HYPERTENSION Status: Chronic Qualifiers: Hypertension type: essential hypertension Qualified Code(s): I10 - Essential (primary) hypertension - Plan * Post-op care and protocols per [facility] * * Nothing to add today - following daily and will assist with management of DM when pt out of the ICU * * Full code
--- NOTE | 2018-09-28 18:41 | PDOC.CTH ---
Cardiology Progress Note - Subjective Had CABG earlier today. Sore but no other issues. - Objective Vital Signs Temp Pulse Ox 09/28/18 16:00 98 F 09/28/18 15:10 100 09/28/18 14:00 97.8 F 100 Weight 146 lb 5 oz 09/27/18 09/28/18 09/29/18 06:59 06:59 06:59 Intake Total 1120 1140 100 Output Total 1000 1925 305 Balance 120 -785 -205 - Physical Examination General/Neuro: alert & oriented x3, NAD Neck: no JVD present Lungs: unlabored respirations Heart: RRR Abdomen: NT/ND Extremities: + edema B (1+) - Telemetry Telemetry Rhythm: NSR - Labs Result Diagrams: 09/28/18 13:42 09/28/18 13:42 - Assessment/Plan 1. Multivessel CAD. 2. S/P CABG x 2 HEARD to LAD, SVG to OM. PLAN: - Continue post op care. - ASA/statin for life. - BB and ACEI once BP allows.
[2018-09-28 19:54] LABS: Hemoglobin 11.8 g/dL (12.0-16.0)
[2018-09-28] MEDS: Famotidine/PF 20 mg/2ml Vial SLOW IVP SCH (20:10)
[2018-09-28] MEDS: Insulin Regular 300 UNITS/3 ML VIAL SC PRN (22:09)
[2018-09-29] MEDS: Lactated Ringer's 1,000 ML IV SCH ×3 (00:14→21:11)
[2018-09-29] MEDS: CEFAZOLIN 2 GM in Premix Bag 1 BAG IVPB SCH ×2 (00:15→07:52)
[2018-09-29] MEDS: Ketorolac Tromethamine 30 MG/ML VIAL IVP SCH ×4 (00:16→18:18)
[2018-09-29] MEDS: Insulin Regular 300 UNITS/3 ML VIAL SC PRN ×5 (02:45→21:11)
[2018-09-29 05:13] LABS: #Lymphocytes 1.9 thou/uL (1.20-3.40); #Neutrophils 14.1 thou/uL (1.40-6.50); %Basophils 0.1 % (0.0-1.0); %Eosinophils 0.2 % (0.0-10.0); %Lymphocytes 11.1 % (21.0-51.0); %Monocytes 5.6 % (0.0-10.0); %Neutrophils 83.1 % (42.0-75.0); Hemoglobin 10.4 g/dL (12.0-16.0); Mean Corpuscular HGB CONC 33.2 g/dL (32.0-36.0); Mean Corpuscular Hemoglobin 30.3 pg (27.0-31.0); Mean Corpuscular Volume 91.3 fL (78.0-98.0); Platelet Count 132 thou/uL (130-400); RBC Distribution Width 12.9 % (11.5-14.5); Red Blood Cell (RBC) Count 3.44 mill/uL (4.20-5.40)
[2018-09-29] MEDS: Acetaminophen 325 MG TAB PO PRN ×3 (05:31→19:43)
[2018-09-29 05:40] LABS: Anion Gap 10 mmol/L (10-20); BUN (Urea Nitrogen) 23 mg/dL (9.8-20.1); Calc. Creatinine Clearance 53 mL/min (70-130); Calcium 8.6 mg/dL (7.8-10.44); Carbon Dioxide 22 mmol/L (23-31); Chloride 108 mmol/L (98-107); Estimated GFR-MDRD 58; Glucose 127 mg/dL (83-110); Potassium 4.4 mmol/L (3.5-5.1); Sodium 136 mmol/L (136-145)
[2018-09-29] MEDS: Levothyroxine Sodium 100 MCG TAB PO SCH (06:20)
[2018-09-29] MEDS: Famotidine/PF 20 mg/2ml Vial SLOW IVP SCH (07:52)
[2018-09-29] MEDS: Aspirin 325 MG TAB PO SCH (07:52)
--- NOTE | 2018-09-29 08:14 | RAD ---
XR Chest 1 View Portable History: Open-heart surgery Comparison: Radiograph prior day Findings: The central catheter tip projects over the right neck. Heart size is enlarged. No pneumotho rax. Mild pulmonary venous congestion. Multiple midline sternotomy wires. Mediastinal drain is similar Impression: Central venous catheter tip projects at the right neck likely in the internal jugular leonardo escobar.
--- NOTE | 2018-09-29 08:49 | PRG ---
DATE OF SERVICE: 09/29/2018 SUBJECTIVE: Angie Pompa, this morning, awake, alert, responsive. No pain. No shortness of breath. Chest x-ray is clear. OBJECTIVE: VITAL SIGNS: Blood pressure 102/58, pulse 61, and saturations are 90%. CHEST: Decreased breath sounds. No wheezing. CARDIAC: Normal S1 and S2. No gallops. ABDOMEN: Soft. LABORATORY DATA: White count is elevated. Lytes are normal. IMPRESSION: Status post Coronary artery bypass grafting. PLAN: Continue PT. Continue observation in the ICU. Follow while in the ICU. Job ID: [id number]
[2018-09-29] MEDS ORDERED: Calcium Carbonate 500 MG ChewTAB PO PRN (17:40)
--- NOTE | 2018-09-29 17:41 | PDOC.PN ---
- Subjective Encounter Start Date: 09/29/18 (f/u DM) Encounter Start Time: 17:40 Subjective: Pt feeling better, states she wasnt feeling so well this morning. -: Has some burning in her throat as well as upper abdomen. - Objective Resuscitation Status - Order Detail: 09/25/18 20:55 Resuscitation Status Routine Resuscitation Status: FULL: Full Resuscitation Vital Signs & Weight: Vital Signs (12 hours) Temp Pulse Ox 09/29/18 11:53 98.4 F 09/29/18 08:00 97.8 F 96 Weight Weight 153 lb 10.595 oz Most Recent Monitor Data Heart Rate from ECG 67 NIBP 107/60 NIBP BP-Mean 75 Respiration from ECG 26 SpO2 95 I&O: 09/28/18 09/29/18 09/30/18 06:59 06:59 06:59 Intake Total 1140 1721 750 Output Total 1925 905 179 Balance -785 816 571 Result Diagrams: 09/29/18 04:55 09/29/18 04:55 Additional Labs: Accuchecks 09/29/18 09/29/18 09/29/18 17:22 11:40 06:21 POC Glucose 135 H 163 H 126 H 09/29/18 09/28/18 09/28/18 02:46 22:10 18:08 POC Glucose 138 H 128 H 120 H 09/28/18 09/28/18 09/28/18 12:58 12:24 11:58 POC Glucose 145 H 137 H 127 H 09/28/18 09/28/18 11:23 10:26 POC Glucose 147 H 147 H Phys Exam - Physical Examination Constitutional: NAD Respiratory: no wheezing, no rales, no rhonchi Cardiovascular: RRR, no significant murmur Gastrointestinal: soft, positive bowel sounds Musculoskeletal: no edema Neurological: moves all 4 limbs Psychiatric: A&O x 3 Dx/Plan (1) Coronary artery disease Code(s): I25.10 - ATHSCL HEART DISEASE OF [place] CORONARY ARTERY W/O ANG PCTRS Status: Acute (2) Diabetes mellitus Code(s): E11.9 - TYPE 2 DIABETES MELLITUS WITHOUT COMPLICATIONS Status: Chronic Qualifiers: Diabetes mellitus type: type 2 Diabetes mellitus intermodal truck driver insulin use: with intermodal truck driver use (3) CKD (chronic kidney disease) Code(s): N18.9 - CHRONIC KIDNEY DISEASE, UNSPECIFIED Status: Chronic Qualifiers: Chronic kidney disease stage: stage 2 (mild) Qualified Code(s): N18.2 - Chronic kidney disease, stage 2 (mild) (4) Dyslipidemia Code(s): E78.5 - HYPERLIPIDEMIA, UNSPECIFIED Status: Chronic (5) Hypothyroid Code(s): E03.9 - HYPOTHYROIDISM, UNSPECIFIED Status: Chronic (6) Hypertension Code(s): I10 - ESSENTIAL (PRIMARY) HYPERTENSION Status: Chronic Qualifiers: Hypertension type: essential hypertension Qualified Code(s): I10 - Essential (primary) hypertension - Plan * Overall doing well POD 1 s/p CABG. Pt currently on post-op CABG protocols * * Will resume [place] when pt transferred to telemetry * * Continue to follow daily * * No new recommendations. * * Full code
--- NOTE | 2018-09-29 18:26 | PDOC.CTH ---
Cardiology Progress Note - Subjective Doing well. Pain well controlled. - Objective Vital Signs Temp Pulse Ox 09/29/18 11:53 98.4 F 09/29/18 08:00 97.8 F 96 Weight 153 lb 10.595 oz 09/28/18 09/29/18 09/30/18 06:59 06:59 06:59 Intake Total 1140 1721 750 Output Total 1925 905 179 Balance -785 816 571 - Physical Examination General/Neuro: alert & oriented x3, NAD Neck: no JVD present Lungs: CTA, unlabored respirations Heart: RRR Abdomen: NT/ND Extremities: + edema B (1+) - Telemetry Telemetry Rhythm: NSR - Labs Result Diagrams: 09/29/18 04:55 09/29/18 04:55 - Assessment/Plan 1. Multivessel CAD. 2. S/P CABG x 2 HEARD to LAD, SVG to OM. PLAN: - Continue post op care. - ASA for life. - Intolerant to statins. - BB and ACEI once BP allows, currently brderline low. - PT and advance as tolerated.
[2018-09-29] MEDS: Famotidine 20 MG TAB PO SCH (21:11)
[2018-09-30] MEDS: Ketorolac Tromethamine 30 MG/ML VIAL IVP SCH ×2 (00:18→06:37)
[2018-09-30] MEDS: Acetaminophen 325 MG TAB PO PRN (02:25)
[2018-09-30] MEDS: Insulin Regular 300 UNITS/3 ML VIAL SC PRN ×4 (05:47→20:55)
[2018-09-30] MEDS: Levothyroxine Sodium 100 MCG TAB PO SCH (05:47)
[2018-09-30] MEDS: Lactated Ringer's 1,000 ML IV SCH (06:36)
[2018-09-30 06:42] LABS: #Basophils 0.1 thou/uL (0.0-0.2); #Eosinphils 0.3 thou/uL (0.0-0.7); #Lymphocytes 3.2 thou/uL (1.20-3.40); #Monocytes 1.2 thou/uL (0.11-0.59); #Neutrophils 10.9 thou/uL (1.40-6.50); %Basophils 0.3 % (0.0-1.0); %Eosinophils 1.7 % (0.0-10.0); %Lymphocytes 20.5 % (21.0-51.0); %Monocytes 7.4 % (0.0-10.0); Hemoglobin 10.1 g/dL (12.0-16.0); Mean Corpuscular HGB CONC 33.3 g/dL (32.0-36.0); Mean Corpuscular Hemoglobin 30.2 pg (27.0-31.0); Mean Corpuscular Volume 90.9 fL (78.0-98.0); Mean Platelet Volume 8.8 fL (7.4-10.4); Platelet Count 128 thou/uL (130-400); RBC Distribution Width 12.7 % (11.5-14.5); Red Blood Cell (RBC) Count 3.33 mill/uL (4.20-5.40); White Blood Cell (WBC) Count 15.5 thou/uL (4.8-10.8)
[2018-09-30 07:01] LABS: Anion Gap 12 mmol/L (10-20); BUN (Urea Nitrogen) 26 mg/dL (9.8-20.1); Calc. Creatinine Clearance 49 mL/min (70-130); Calcium 8.7 mg/dL (7.8-10.44); Carbon Dioxide 22 mmol/L (23-31); Chloride 97 mmol/L (98-107); Estimated GFR-MDRD 48; Glucose 168 mg/dL (83-110); Potassium 4.6 mmol/L (3.5-5.1); Sodium 126 mmol/L (136-145)
[2018-09-30] MEDS: Famotidine 20 MG TAB PO SCH ×2 (07:43→20:08)
[2018-09-30] MEDS: Aspirin 325 MG TAB PO SCH (07:43)
--- NOTE | 2018-09-30 07:58 | RAD ---
XR Chest 1 View Portable History: Open-heart surgery Comparison: Radiograph prior day Findings: Similar appearance of the central venous catheter with tip projecting over the right customer success intern al jugular vein. Small effusions. Mediastinal drain persists. No significant pneumothorax. Mild atelectasis. Impression: Similar examination the chest.
--- NOTE | 2018-09-30 09:03 | PRG ---
DATE OF SERVICE: 09/30/2018 SUBJECTIVE: Angie Pompa this morning is awake, alert, responsive, in no distress. No pain or shortness of breath. OBJECTIVE: VITAL SIGNS: Saturations are 96% on room air, temperature 98, and blood pressure 133/63. CHEST: Decreased breath sounds. No wheezing. CARDIAC: Normal S1, S2. No gallops. ABDOMEN: Soft. NEUROLOGIC: Awake, alert, responsive. LABORATORY DATA: Sodium is dropped to 126, probably multifactorial. DIAGNOSTIC STUDIES: Chest x-ray is clear. IMPRESSION: 1. Status post coronary artery bypass grafting. 2. Hyponatremia. 3. Hypothyroidism, on replacement medication. PLAN: Continue PT. Supportive care. We will follow while in the ICU. Job ID: [id number]
[2018-09-30] MEDS ORDERED: Ondansetron PF 4 MG/2 ML Vial IVP PRN (10:36)
[2018-09-30] MEDS ORDERED: Milk Of Magnesia 30 ML UDCUP PO PRN (10:36)
[2018-09-30] MEDS ORDERED: Nitroglycerin 0.4 MG TAB (25 Tab Bottle) SL PRN (10:36)
[2018-09-30] MEDS ORDERED: Ibuprofen 600 MG TAB PO PRN (10:36)
[2018-09-30] MEDS ORDERED: Bisacodyl 5 MG TAB PO PRN (10:36)
[2018-09-30] MEDS ORDERED: Mineral Oil ENEMA PR PRN (10:36)
[2018-09-30] MEDS ORDERED: Guaifenesin DM 100-10/5 ML UDCUP PO PRN (10:36)
[2018-09-30] MEDS ORDERED: diphenhydrAMINE 25 MG CAP PO PRN (10:36)
[2018-09-30] MEDS ORDERED: HYDROcodone/Acetaminophen 5/325 mg Tablet PO PRN ×2 (10:36)
[2018-09-30] MEDS ORDERED: Mag-Al 1200 mg/1200 mg/30 ML UDCUP PO PRN (10:36)
[2018-09-30] MEDS ORDERED: Bisacodyl 10 MG SUPP PR PRN (10:36)
[2018-09-30] MEDS ORDERED: Acetaminophen 325 MG TAB PO PRN (10:36)
[2018-09-30] MEDS ORDERED: Dextrose 5% in Water 1,000 ML IV PRN (11:24)
[2018-09-30] MEDS ORDERED: Dextrose 50% Abboject 50 ML SYRINGE IVP PRN (11:24)
[2018-09-30] MEDS ORDERED: Furosemide 40 MG TAB PO SCH (12:00)
[2018-09-30] MEDS ORDERED: Potassium Chloride 10 MEQ TAB PO SCH (12:00)
--- NOTE | 2018-09-30 17:11 | PDOC.CTH ---
Cardiology Progress Note - Subjective Doing well. Chest tubes out. No new issues. - Objective Vital Signs Temp Pulse Pulse BP BP Pulse Ox Pulse Ox 09/30/18 16:00 98.0 F 09/30/18 13:35 67 79 153/71 H 123/60 95 09/30/18 12:00 97.9 F 09/30/18 10:55 63 60 144/95 H 156/90 H 95 09/30/18 09:14 61 62 132/64 131/64 97 09/30/18 07:21 96 09/30/18 07:20 98.1 F Pulse Ox 09/30/18 16:00 09/30/18 13:35 94 L 09/30/18 12:00 09/30/18 10:55 93 L 09/30/18 09:14 96 09/30/18 07:21 09/30/18 07:20 Weight 159 lb 9.835 oz 09/29/18 09/30/18 10/01/18 06:59 06:59 06:59 Intake Total 1721 1450 1050 Output Total 365 209 7948 Balance 816 530 -1405 - Physical Examination General/Neuro: alert & oriented x3, NAD Neck: no JVD present Lungs: CTA, unlabored respirations Heart: RRR Abdomen: NT/ND Extremities: + edema B (1+) - Telemetry Telemetry Rhythm: NSR - Labs Result Diagrams: 09/30/18 06:16 09/30/18 06:16 - Assessment/Plan 1. Multivessel CAD. 2. S/P CABG x 2 HEARD to LAD, SVG to OM. PLAN: - ASA for life. - Intolerant to statins. - Will retsrat lisinorpil at 5 mg daily she is on 40 mg at home. - HR low for BB at this time. - PT and advance as tolerated.
--- NOTE | 2018-09-30 18:03 | PDOC.PN ---
- Subjective Encounter Start Date: 09/30/18 (f/u DM) Encounter Start Time: 17:59 Subjective: Pt is POD2, states she is feeling better, ambulating with cardiac -: rehab. Pain controlled. Denies any complaints. +flatus, no BM - Objective Resuscitation Status - Order Detail: 09/25/18 20:55 Resuscitation Status Routine Resuscitation Status: FULL: Full Resuscitation Vital Signs & Weight: Vital Signs (12 hours) Temp Pulse Pulse BP BP Pulse Ox Pulse Ox 09/30/18 16:00 98.0 F 09/30/18 13:35 67 79 153/71 H 123/60 95 09/30/18 12:00 97.9 F 09/30/18 10:55 63 60 144/95 H 156/90 H 95 09/30/18 09:14 61 62 132/64 131/64 97 09/30/18 07:21 96 09/30/18 07:20 98.1 F Pulse Ox 09/30/18 16:00 09/30/18 13:35 94 L 09/30/18 12:00 09/30/18 10:55 93 L 09/30/18 09:14 96 09/30/18 07:21 09/30/18 07:20 Weight Weight 159 lb 9.835 oz Most Recent Monitor Data Heart Rate from ECG 66 NIBP 154/70 NIBP BP-Mean 98 Respiration from ECG 23 SpO2 95 I&O: 09/29/18 09/30/18 10/01/18 06:59 06:59 06:59 Intake Total 1721 1450 1050 Output Total 856 936 7690 Balance 816 530 -1530 Result Diagrams: 09/30/18 06:16 09/30/18 06:16 Additional Labs: Accuchecks 09/30/18 09/30/18 09/29/18 11:47 05:46 21:02 POC Glucose 155 H 169 H 175 H Phys Exam - Physical Examination Constitutional: NAD Respiratory: no wheezing, no rales, no rhonchi Cardiovascular: RRR, no significant murmur Gastrointestinal: soft, non-tender, no distention, positive bowel sounds Musculoskeletal: no edema Psychiatric: A&O x 3 Dx/Plan (1) Coronary artery disease Code(s): I25.10 - ATHSCL HEART DISEASE OF [place] CORONARY ARTERY W/O ANG PCTRS Status: Acute (2) Diabetes mellitus Code(s): E11.9 - TYPE 2 DIABETES MELLITUS WITHOUT COMPLICATIONS Status: Chronic Qualifiers: Diabetes mellitus type: type 2 Diabetes mellitus fpc insulin use: with terminal superintendent use (3) CKD (chronic kidney disease) Code(s): N18.9 - CHRONIC KIDNEY DISEASE, UNSPECIFIED Status: Chronic Qualifiers: Chronic kidney disease stage: stage 2 (mild) Qualified Code(s): N18.2 - Chronic kidney disease, stage 2 (mild) (4) Dyslipidemia Code(s): E78.5 - HYPERLIPIDEMIA, UNSPECIFIED Status: Chronic (5) Hypothyroid Code(s): E03.9 - HYPOTHYROIDISM, UNSPECIFIED Status: Chronic (6) Hypertension Code(s): I10 - ESSENTIAL (PRIMARY) HYPERTENSION Status: Chronic Qualifiers: Hypertension type: essential hypertension Qualified Code(s): I10 - Essential (primary) hypertension - Plan * POD #2 s/p CABG with care by [facility] * Has received lasix with increase in UOP * DM - resume long-acting insulin with lantus at 10 units per night * continue SSI with meals/bedtime * Change miralax to scheduled at night * Hinojosa out today per protocol * Hyponatremia - post-op, recheck in AM * * dvt prophy - compression hose * gi prophy - not indicated * code status full * * reviewed plan of care with patient, no questions or further needs at end of eval
[2018-09-30] MEDS: Polyethylene Glycol 3350 17 GM Packet PO SCH (20:09)
[2018-09-30] MEDS: Insulin Glargine 10 UNITS in Pre-Filled Syringe SC SCH (20:56)
[2018-10-01 04:40] LABS: Anion Gap 11 mmol/L (10-20); BUN (Urea Nitrogen) 16 mg/dL (9.8-20.1); Calc. Creatinine Clearance 63 mL/min (70-130); Calcium 9.3 mg/dL (7.8-10.44); Carbon Dioxide 28 mmol/L (23-31); Chloride 98 mmol/L (98-107); Estimated GFR-MDRD 65; Glucose 156 mg/dL (83-110); Potassium 4.1 mmol/L (3.5-5.1); Sodium 133 mmol/L (136-145)
[2018-10-01] MEDS: Levothyroxine Sodium 100 MCG TAB PO SCH (06:14)
[2018-10-01] MEDS: Insulin Regular 300 UNITS/3 ML VIAL SC PRN ×4 (07:24→21:28)
[2018-10-01] MEDS: Potassium Chloride 10 MEQ TAB PO SCH (08:17)
[2018-10-01] MEDS: Aspirin 325 mg Enteric Coated Tablet PO SCH (08:18)
[2018-10-01] MEDS: Furosemide 40 MG TAB PO SCH (08:18)
[2018-10-01] MEDS: Famotidine 20 MG TAB PO SCH ×2 (08:18→21:30)
[2018-10-01] MEDS ORDERED: Polyethylene Glycol 3350 17 GM Packet PO SCH (09:00)
--- NOTE | 2018-10-01 13:23 | PDOC.CTH ---
Cardiology Progress Note - Subjective Pt. seen and eval. by me. No cardiac complaints.Sitting up in chair at bedside. - Objective Vital Signs Temp Pulse Pulse BP BP Pulse Ox Pulse Ox 10/01/18 12:00 99.0 F 10/01/18 08:54 92 68 153/84 H 150/64 H 95 10/01/18 08:00 98.7 F 94 L 10/01/18 06:00 99 F 10/01/18 04:00 99.9 F H Pulse Ox 10/01/18 12:00 10/01/18 08:54 94 L 10/01/18 08:00 10/01/18 06:00 10/01/18 04:00 Weight 155 lb 09/30/18 10/01/18 10/02/18 06:59 06:59 06:59 Intake Total 1450 1260 910 Output Total 920 3955 1125 Balance 840 -5997 -360 - Physical Examination General/Neuro: alert & oriented x3 Neck: no JVD present Lungs: CTA Heart: RRR Abdomen: NT/ND, soft - Labs Result Diagrams: 09/30/18 06:16 10/01/18 03:30 - Assessment/Plan 1. Multivessel CAD. 2. S/P CABG x 2 HEARD to LAD, SVG to OM. PLAN: - ASA for life. - Intolerant to statins. - Started lisinorpil at 5 mg daily she is on 40 mg at home. - HR stable add low dose BB at this time. - PT and advance as tolerated.
--- NOTE | 2018-10-01 14:29 | PDOC.PN ---
- Subjective Encounter Start Date: 10/01/18 Encounter Start Time: 14:28 Patient seen and examined, no new issues or complaints, at bedside, all questions answered. - Objective Resuscitation Status - Order Detail: 09/25/18 20:55 Resuscitation Status Routine Resuscitation Status: FULL: Full Resuscitation Vital Signs & Weight: Vital Signs (12 hours) Temp Pulse Pulse BP BP Pulse Ox Pulse Ox 10/01/18 13:30 67 72 140/72 117/61 96 10/01/18 12:00 99.0 F 10/01/18 08:54 92 68 153/84 H 150/64 H 95 10/01/18 08:00 98.7 F 94 L 10/01/18 06:00 99 F 10/01/18 04:00 99.9 F H Pulse Ox 10/01/18 13:30 93 L 10/01/18 12:00 10/01/18 08:54 94 L 10/01/18 08:00 10/01/18 06:00 10/01/18 04:00 Weight Weight 155 lb Most Recent Monitor Data Heart Rate from ECG 70 NIBP 140/72 NIBP BP-Mean 94 Respiration from ECG 22 SpO2 95 I&O: 09/30/18 10/01/18 10/02/18 06:59 06:59 06:59 Intake Total 1450 1260 1030 Output Total 920 3955 1125 Balance 530 -2695 -95 Result Diagrams: 09/30/18 06:16 10/01/18 03:30 Additional Labs: Accuchecks 10/01/18 10/01/18 09/30/18 11:35 03:33 20:51 POC Glucose 229 H 167 H 230 H 09/30/18 17:50 POC Glucose 195 H Phys Exam - Physical Examination Constitutional: NAD HEENT: PERRLA, moist MMs, sclera anicteric Neck: no nodes, no JVD, supple Respiratory: no wheezing, no rales, no rhonchi Cardiovascular: RRR, no significant murmur, no rub Gastrointestinal: soft, non-tender, no distention, positive bowel sounds Musculoskeletal: pulses present, edema present Dx/Plan (1) Coronary artery disease Code(s): I25.10 - ATHSCL HEART DISEASE OF [place] CORONARY ARTERY W/O ANG PCTRS Status: Acute (2) CKD (chronic kidney disease) Code(s): N18.9 - CHRONIC KIDNEY DISEASE, UNSPECIFIED Status: Chronic Qualifiers: Chronic kidney disease stage: stage 2 (mild) Qualified Code(s): N18.2 - Chronic kidney disease, stage 2 (mild) (3) Diabetes mellitus Code(s): E11.9 - TYPE 2 DIABETES MELLITUS WITHOUT COMPLICATIONS Status: Chronic Qualifiers: Diabetes mellitus type: type 2 Diabetes mellitus terminal computer operator insulin use: with care home use (4) Dyslipidemia Code(s): E78.5 - HYPERLIPIDEMIA, UNSPECIFIED Status: Chronic (5) Hypertension Code(s): I10 - ESSENTIAL (PRIMARY) HYPERTENSION Status: Chronic Qualifiers: Hypertension type: essential hypertension Qualified Code(s): I10 - Essential (primary) hypertension (6) Hypothyroid Code(s): E03.9 - HYPOTHYROIDISM, UNSPECIFIED Status: Chronic - Plan * s/p CABG * pending inpatient rehab * cont current plan of care w/o any changes * DC to [facility] once arranged * case and plan d/w patient at on license of [facility], they understand and agree with this plan.
[2018-10-01] MEDS: Polyethylene Glycol 3350 17 GM Packet PO SCH (21:29)
[2018-10-01] MEDS: Insulin Glargine 10 UNITS in Pre-Filled Syringe SC SCH (21:29)
[2018-10-02] MEDS: Levothyroxine Sodium 100 MCG TAB PO SCH (05:32)
[2018-10-02 06:11] VITALS: BMI 29.5
[2018-10-02] MEDS: Potassium Chloride 10 MEQ TAB PO SCH (09:02)
[2018-10-02] MEDS: Furosemide 40 MG TAB PO SCH (09:02)
[2018-10-02] MEDS: Famotidine 20 MG TAB PO SCH (09:02)
[2018-10-02] MEDS: Aspirin 325 mg Enteric Coated Tablet PO SCH (09:02)
[2018-10-02] MEDS: Insulin Regular 300 UNITS/3 ML VIAL SC PRN ×3 (09:03→16:46)
--- NOTE | 2018-10-02 12:46 | PDOC.PN ---
- Subjective Encounter Start Date: 10/02/18 Encounter Start Time: 12:45 Patient seen and examined, no new issues. - Objective Resuscitation Status - Order Detail: 09/25/18 20:55 Resuscitation Status Routine Resuscitation Status: FULL: Full Resuscitation Vital Signs & Weight: Vital Signs (12 hours) Temp Pulse Pulse Pulse Resp BP BP 10/02/18 12:00 98.9 F 72 16 10/02/18 09:05 70 74 145/93 H 133/62 10/02/18 08:00 99.0 F 76 14 10/02/18 04:00 98.5 F 70 18 BP BP BP Pulse Ox Pulse Ox Pulse Ox 10/02/18 12:00 119/54 L 93 L 10/02/18 09:05 97 95 10/02/18 08:00 110/53 L 110/53 L 93 L 10/02/18 04:00 124/62 95 Weight Weight 151 lb 1.6 oz Most Recent Monitor Data Heart Rate from ECG 67 NIBP 105/53 NIBP BP-Mean 70 Respiration from ECG 19 SpO2 95 I&O: 10/01/18 10/02/18 10/03/18 06:59 06:59 06:59 Intake Total 1260 2050 Output Total 3955 1725 Balance -2695 325 Result Diagrams: 09/30/18 06:16 10/01/18 03:30 Additional Labs: Accuchecks 10/02/18 10/02/18 10/01/18 10:47 05:37 20:43 POC Glucose 179 H 137 H 197 H 10/01/18 16:01 POC Glucose 216 H Phys Exam - Physical Examination Constitutional: NAD HEENT: PERRLA, moist MMs Neck: no nodes, no JVD Respiratory: no wheezing, no rales, no rhonchi Cardiovascular: RRR, no significant murmur, no rub Gastrointestinal: soft, non-tender, no distention Musculoskeletal: no edema, pulses present Dx/Plan (1) Coronary artery disease Code(s): I25.10 - ATHSCL HEART DISEASE OF [place] CORONARY ARTERY W/O ANG PCTRS Status: Acute (2) CKD (chronic kidney disease) Code(s): N18.9 - CHRONIC KIDNEY DISEASE, UNSPECIFIED Status: Chronic Qualifiers: Chronic kidney disease stage: stage 2 (mild) Qualified Code(s): N18.2 - Chronic kidney disease, stage 2 (mild) (3) Diabetes mellitus Code(s): E11.9 - TYPE 2 DIABETES MELLITUS WITHOUT COMPLICATIONS Status: Chronic Qualifiers: Diabetes mellitus type: type 2 Diabetes mellitus intermediate designer insulin use: with intermediate designer use (4) Dyslipidemia Code(s): E78.5 - HYPERLIPIDEMIA, UNSPECIFIED Status: Chronic (5) Hypertension Code(s): I10 - ESSENTIAL (PRIMARY) HYPERTENSION Status: Chronic Qualifiers: Hypertension type: essential hypertension Qualified Code(s): I10 - Essential (primary) hypertension (6) Hypothyroid Code(s): E03.9 - HYPOTHYROIDISM, UNSPECIFIED Status: Chronic - Plan * cont current plan * pending placement * DC once placement arranged * case and plan d/w patient at length, they understood and agreed with this plan.
--- NOTE | 2018-10-02 13:30 | PDOC.CTH ---
Cardiology Progress Note - Subjective The pt seen and examined. No overnight events. No cardiac complaints. She walked around nursing station this AM with PT without any cardiac complaints. - Objective Vital Signs Temp Pulse Pulse Pulse Resp BP BP 10/02/18 12:21 70 70 134/62 118/59 L 10/02/18 12:00 98.9 F 72 16 10/02/18 09:05 70 74 145/93 H 133/62 10/02/18 08:00 99.0 F 76 14 10/02/18 04:00 98.5 F 70 18 BP BP BP Pulse Ox Pulse Ox Pulse Ox 10/02/18 12:21 98 93 L 10/02/18 12:00 119/54 L 93 L 10/02/18 09:05 97 95 10/02/18 08:00 110/53 L 110/53 L 93 L 10/02/18 04:00 124/62 95 Weight 151 lb 1.6 oz 10/01/18 10/02/18 10/03/18 06:59 06:59 06:59 Intake Total 1260 2050 Output Total 3955 1725 Balance -2695 325 - Physical Examination General/Neuro: alert & oriented x3 Neck: no JVD present Lungs: CTA Heart: RRR Abdomen: soft Extremities: other: (No edema) - Labs Result Diagrams: 09/30/18 06:16 10/01/18 03:30 - Assessment/Plan 1. Multivessel CAD with S/P CABG x 2 HEARD to LAD, SVG to OM on 09/29/2018 - will start BBlocker with more stable BP; on ASA, but no Statin due to intolerance of Statin 2. HTN - stable without any BP med 3. Hyperlpidiemia - no Statin due to intolerance of Statin; may need PCSK9 inhibitor; defer to Dr Hernandez 4. DM type 2 5. Hypothyroidism MAR reviewed * The pt prefer to f/u with Dr Hernandez Pt.seen and eval. by me.I agree with the A/P by the NUCLEAR SECURITY OFFICER. Chest clear. RRR. Cont. present Tx. Review of Systems - Review of Systems Constitutional: reports: no symptoms reported EENTM: reports: no symptoms reported Respiratory: reports: no symptoms reported ABD/GI: reports: no symptoms reported : reports: no symptoms reported Musculoskeletal: reports: no symptoms reported
--- NOTE | 2018-10-02 15:24 | DIS ---
DATE OF ADMISSION: 09/25/2018 DATE OF DISCHARGE: 10/02/2018 HOSPITAL COURSE: The patient was admitted for elective coronary bypass grafting after undergoing cardiac catheterization at the [facility] and being transferred here. She underwent a 2-vessel bypass grafting to the LAD and OM. Postoperative course was uneventful, and she will be discharged home. DISCHARGE MEDICATIONS: Reconciled in the chart. Job ID: [id number]
[2018-10-02 16:39] VITALS: BP 163/63; TEMP 99.2
[2018-10-03] MEDS ORDERED: Aspirin 81 mg Enteric Coated Tablet PO SCH (09:00)
[2018-10-06 09:02] LABS: Analyzer IN Cardio OR; Base Excess (BEa) 1.3 mEq/L (-2.0 to +3.0); CO2 Tension 35.6 mmHg (35.0-45.0); Calcium, Ionized 1.04 mmol/L (1.12-1.30); Carboxyhemoglobin (COHb) 0.8 gm% (0.0-3.0); Hemoglobin (Hb) 7.3 g/dL (12.0-16.0); O2 Tension (PaO2) 328.5 mmHg (> 70.0); Potassium - ABG Lab 4.32 mmol/L (3.70-5.30); pH, Arterial 7.47 (7.35-7.45)
[2018-10-06 09:02] LABS: Actual Bicarbonate (HCO3a) 22.7 mEq/L (22-28); Analyzer IN Cardio OR; Base Excess (BEa) -0.3 mEq/L (-2.0 to +3.0); CO2 Tension 31.6 mmHg (35.0-45.0); Calcium, Ionized 1.17 mmol/L (1.12-1.30); Carboxyhemoglobin (COHb) 0.3 gm% (0.0-3.0); Hemoglobin (Hb) 10.9 g/dL (12.0-16.0); Potassium - ABG Lab 4.07 mmol/L (3.70-5.30); pH, Arterial 7.47 (7.35-7.45)
[2018-10-06 09:03] LABS: Actual Bicarbonate (HCO3a) 22.4 mEq/L (22-28); Analyzer IN Cardio OR; Base Excess (BEa) 0.2 mEq/L (-2.0 to +3.0); CO2 Tension 28.7 mmHg (35.0-45.0); Calcium, Ionized 1.16 mmol/L (1.12-1.30); Carboxyhemoglobin (COHb) 0.3 gm% (0.0-3.0); Hemoglobin (Hb) 11.1 g/dL (12.0-16.0); Potassium - ABG Lab 4.07 mmol/L (3.70-5.30); pH, Arterial 7.51 (7.35-7.45)
[2018-10-06 09:03] LABS: Actual Bicarbonate (HCO3a) 22.8 mEq/L (22-28); Analyzer IN Cardio OR; Base Excess (BEa) 0.6 mEq/L (-2.0 to +3.0); CO2 Tension 27.2 mmHg (35.0-45.0); Calcium, Ionized 0.94 mmol/L (1.12-1.30); Carboxyhemoglobin (COHb) 0.6 gm% (0.0-3.0); Hemoglobin (Hb) 7.6 g/dL (12.0-16.0); Potassium - ABG Lab 4.08 mmol/L (3.70-5.30); pH, Arterial 7.54 (7.35-7.45)
[2018-10-06 09:04] LABS: Actual Bicarbonate (HCO3a) 23.5 mEq/L (22-28); Analyzer IN Cardio OR; Base Excess (BEa) 1.1 mEq/L (-2.0 to +3.0); CO2 Tension 27.8 mmHg (35.0-45.0); Carboxyhemoglobin (COHb) 0.8 gm% (0.0-3.0); Hemoglobin (Hb) 7.1 g/dL (12.0-16.0); O2 Tension (PaO2) 396.8 mmHg (> 70.0); Potassium - ABG Lab 4.29 mmol/L (3.70-5.30); pH, Arterial 7.54 (7.35-7.45)
[2018-10-06 09:04] LABS: Actual Bicarbonate (HCO3a) 22.2 mEq/L (22-28); Analyzer IN Cardio OR; Base Excess (BEa) -0.6 mEq/L (-2.0 to +3.0); Carboxyhemoglobin (COHb) 0.3 gm% (0.0-3.0); Hemoglobin (Hb) 9.3 g/dL (12.0-16.0); Potassium - ABG Lab 3.83 mmol/L (3.70-5.30); pH, Arterial 7.49 (7.35-7.45)
[2018-10-06 09:04] LABS: Actual Bicarbonate (HCO3a) 24.1 mEq/L (22-28); Analyzer IN Cardio OR; CO2 Tension 47.1 mmHg (35.0-45.0); Carboxyhemoglobin (COHb) 0.3 gm% (0.0-3.0); Hemoglobin (Hb) 9.7 g/dL (12.0-16.0); O2 Tension (PaO2) 480.2 mmHg (> 70.0); Potassium - ABG Lab 3.74 mmol/L (3.70-5.30); pH, Arterial 7.33 (7.35-7.45)
[2018-10-06 09:29] LABS: Puncture Site ALINE
[2018-10-06 09:30] LABS: O2 Tension (PaO2) 512.9 mmHg (> 70.0)
[2018-10-06 09:31] LABS: Puncture Site ALINE
[2018-10-06 09:34] LABS: Puncture Site ALINE
[2018-10-06 09:34] LABS: Puncture Site ALINE
[2018-10-06 09:35] LABS: O2 Tension (PaO2) 508.8 mmHg (> 70.0); Puncture Site ALINE
[2018-10-06 09:37] LABS: O2 Tension (PaO2) 554.1 mmHg (> 70.0); Puncture Site ALINE
[2018-10-06 09:37] LABS: Puncture Site ALINE
== END 2018-10-02 20:03 | disposition home or self-care (01) | DRG 236 ==
LOC: IMCU/EMU 18:24 → 2NO 09-26 20:33 → CCU 09-28 08:48 → 2NO 10-01 18:29
PROVIDERS: ADMIT Family Medicine; ATTEND Family Medicine
PROC: 0210093 Bypass Coronary Artery, One Artery from Coronary Artery with Autologous Venous Tissue, Open Approach (ICD-10-PCS; principal; 2018-09-28)
PROC: 02100Z9 Bypass Coronary Artery, One Artery from Left Internal Mammary, Open Approach (ICD-10-PCS; 2018-09-28)
PROC: 06BQ0ZZ Excision of Left Saphenous Vein, Open Approach (ICD-10-PCS; 2018-09-28)
PROC: 5A1221Z Performance of Cardiac Output, Continuous (ICD-10-PCS; 2018-09-28)
PROC: 30233N1 Transfusion of Nonautologous Red Blood Cells into Peripheral Vein, Percutaneous Approach (ICD-10-PCS; 2018-09-28)
DX: I25.118 Atherosclerotic heart disease of native coronary artery with other forms of angina pectoris (principal); E87.1 Hypo-osmolality and hyponatremia; E78.5 Hyperlipidemia, unspecified; E03.9 Hypothyroidism, unspecified; M85.80 Other specified disorders of bone density and structure, unspecified site; D63.1 Anemia in chronic kidney disease; N18.2 Chronic kidney disease, stage 2 (mild); E11.22 Type 2 diabetes mellitus with diabetic chronic kidney disease; I12.9 Hypertensive chronic kidney disease with stage 1 through stage 4 chronic kidney disease, or unspecified chronic kidney disease; K21.9 Gastro-esophageal reflux disease without esophagitis; E66.9 Obesity, unspecified; Z68.29 Body mass index [BMI] 29.0-29.9, adult; Z87.891 Personal history of nicotine dependence; Z79.4 Long term (current) use of insulin; Z30.2 Encounter for sterilization; Z88.8 Allergy status to other drugs, medicaments and biological substances; Z79.899 Other long term (current) drug therapy; Z79.82 Long term (current) use of aspirin
CPT/HCPCS: 36415; 36416; 36430; 71045; 80048; 85025; 85610; 85730; 86850; 86870; 86900; 86901; 86922; 93005; 93010; 93798; 94760; J0690; J1642; J1644; J1815; J1885; J2001; J2150; J2250; J2405; J2440; J2720; J3010; J3370; J3475; J3480; J3490; J7050; P9016; P9045; S0017; S0028